=== PATIENT | female | born 2000 | race Hispanic/Latino ===

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

== ENCOUNTER 2022-02-19 17:21 | Day surgery (SDC) | payer OTHER ==
[2022-02-19 18:47] VITALS: BMI 34.3
[2022-02-19 19:00] LABS: Fetal Membranes Rupture No Membranes Rupture (No Rupture)
[2022-02-19] MEDS ORDERED: hydrALAZINE 20 MG/ML VIAL SLOW IVP PRN (19:37)
== END 2022-02-19 20:00 | disposition home or self-care (01) ==
LOC: CSHLD/OP 17:21
PROVIDERS: ATTEND Obstetrics & Gynecology
DX: O99.891 Other specified diseases and conditions complicating pregnancy (principal); N89.8 Other specified noninflammatory disorders of vagina; Z3A.37 37 weeks gestation of pregnancy
CPT/HCPCS: 84112; 87480; 87510; 87660; 99284

== ENCOUNTER 2022-03-09 05:30 | Inpatient (IN) | payer OTHER ==
[2022-03-09] MEDS ORDERED: Ondansetron PF 4 MG/2 ML Vial IVP PRN (20:16)
[2022-03-09] MEDS ORDERED: Ibuprofen 800 MG TAB PO PRN (20:16)
[2022-03-09] MEDS ORDERED: Misoprostol 100 MCG TAB VAG SCH ×2 (20:16)
[2022-03-09] MEDS ORDERED: HYDROcodone/Acetaminophen 5/325 mg Tablet PO PRN ×2 (20:16)
[2022-03-09] MEDS ORDERED: hydrALAZINE 20 MG/ML VIAL SLOW IVP PRN (20:16)
[2022-03-09] MEDS ORDERED: Lidocaine 1% (PF) 30 ML VIAL SC PRN (20:16)
[2022-03-09] MEDS ORDERED: Promethazine HCl 25 MG/ML VIAL IM PRN (20:16)
[2022-03-09 20:36] VITALS: BMI 40.3
[2022-03-09] MEDS ORDERED: NS w/ Oxytocin 30 units 500 ML IV SCH ×2 (21:00)
[2022-03-09] MEDS ORDERED: Penicillin G Potassium 5 MILL.UNITS in Sodium Chloride 0.9% 100 ML IVPB SCH (21:00)
[2022-03-09] MEDS ORDERED: Lactated Ringer's 1,000 ML IV SCH (21:00)
[2022-03-09 21:40] LABS: Hemoglobin 12.1 g/dL (12.0-15.5); Mean Corpuscular HGB CONC 34.2 g/dL (32.0-36.0); Mean Corpuscular Hemoglobin 27.4 pg (27.0-33.0); Mean Corpuscular Volume 80.1 fl (81.6-98.3); Mean Platelet Volume 9.2 fl (7.4-10.4); Platelet Count 364 10x3/uL (150-450); RBC Distribution Width 14.5 % (11.5-14.5); Red Blood Cell (RBC) Count 4.42 10x6/uL (3.90-5.03); White Blood Cell (WBC) Count 13.5 10x3/uL (3.5-10.5)
[2022-03-09 22:19] LABS: SARS-CoV-2 NAA Rapid Test Not Detected (NotDetected)
[2022-03-09 23:52] LABS: Syphilis Antibody Nonreactive (Nonreactive)
[2022-03-09 23:53] LABS: HBSAg Index 0.17 S/CO (0-0.99); Hep B Surf Ag Non-Reactive S/CO (NonReactive)
[2022-03-10] MEDS: Penicillin G 2.5 MILL.units 2.5 MILL.UNITS in Premix Bag 1 BAG IVPB SCH ×5 (01:22→17:14)
[2022-03-10] MEDS: Butorphanol Tartrate 1 MG/ML VIAL SLOW IVP PRN ×6 (07:20→15:56)
[2022-03-10] MEDS ORDERED: Misoprostol 200 MCG TAB ONE (20:01)
[2022-03-10] MEDS ORDERED: CEFAZOLIN 2 GM VIAL ONE (20:57)
[2022-03-10] MEDS ORDERED: Azithromycin 500 MG VIAL ONE (20:57)
[2022-03-10] MEDS ORDERED: Morphine PF 10 MG/10 ML VIAL ONE (20:59)
[2022-03-10] MEDS ORDERED: Phenylephrine 40 MG/NS 250 ML 250 ML ONE (20:59)
[2022-03-10] MEDS ORDERED: Fentanyl 100 MCG/2 ML VIAL ONE (20:59)
[2022-03-10] MEDS ORDERED: Oxytocin 10 UNITS/ML VIAL ONE (21:00)
[2022-03-10] MEDS ORDERED: Fentanyl 100 MCG/2 ML VIAL SLOW IVP PRN (21:05)
[2022-03-10] MEDS ORDERED: Promethazine HCl 25 MG SUPP PR PRN ×2 (21:05→22:30)
[2022-03-10] MEDS ORDERED: Moisturizing Cream (Eucerin) 113 GM JAR TOP PRN ×2 (21:05→22:30)
[2022-03-10] MEDS ORDERED: Ketorolac Tromethamine 30 MG/ML VIAL IVP PRN (21:05)
[2022-03-10] MEDS ORDERED: Meperidine HCl/PF 25 MG/ML VIAL SLOW IVP PRN (21:05)
[2022-03-10] MEDS ORDERED: HYDROmorphone 2 MG/ML VIAL SLOW IVP PRN (21:05)
[2022-03-10] MEDS ORDERED: Ondansetron HCl/PF 4 MG/2 ML Vial IVP PRN (21:05)
[2022-03-10] MEDS ORDERED: Promethazine HCl 25 MG/ML VIAL IM PRN ×2 (21:05→22:30)
[2022-03-10] MEDS ORDERED: Naloxone HCl 0.4 mg/ml Vial IV PRN ×2 (21:05→22:30)
[2022-03-10] MEDS ORDERED: Naloxone HCl 0.4 mg/ml Vial IVP PRN ×4 (21:05→22:30)
[2022-03-10] MEDS ORDERED: Ondansetron PF 4 MG/2 ML Vial IVP PRN ×3 (21:05→23:11)
[2022-03-10] MEDS ORDERED: diphenhydrAMINE 50 MG/ML VIAL IVP PRN ×2 (21:05→22:30)
[2022-03-10] MEDS ORDERED: Famotidine/PF 20 mg/2ml Vial SLOW IVP PRN (21:10)
[2022-03-10] MEDS ORDERED: Bicitra 30 ML UDCUP PO PRN (21:10)
[2022-03-10] MEDS ORDERED: CEFAZOLIN 2 GM in Sodium Chloride 0.9% 100 ML IVPB SCH (21:15)
[2022-03-10] MEDS ORDERED: Communication Order-Pharmacy FS SCH ×2 (21:15→22:30)
[2022-03-10] MEDS ORDERED: Ketorolac Tromethamine 30 MG/ML VIAL IVP SCH (21:15)
[2022-03-10] MEDS ORDERED: Azithromycin 500 MG in Sodium Chloride 0.9% 250 ML 250 ML IVPB SCH (21:15)
[2022-03-10] MEDS ORDERED: Dexamethasone 4 mg/ml Vial ONE (21:20)
[2022-03-10] MEDS ORDERED: Ondansetron PF 4 MG/2 ML Vial ONE (21:20)
[2022-03-10] MEDS ORDERED: PHENYLEPHRINE-NS 100 MCG/ML 10 ML SYRINGE ONE (21:41)
[2022-03-10] MEDS ORDERED: Ketorolac Tromethamine 30 MG/ML VIAL ONE (21:52)
[2022-03-10] MEDS ORDERED: hydrALAZINE 20 MG/ML VIAL SLOW IVP PRN (23:11)
[2022-03-10] MEDS ORDERED: diphenhydrAMINE 25 MG CAP PO PRN (23:11)
[2022-03-10] MEDS ORDERED: Boostrix 0.5 ML (Tdap) VIAL (>/=7 yrs of age) IM ONE (23:11)
[2022-03-10] MEDS ORDERED: Acetaminophen 325 MG TAB PO PRN (23:11)
[2022-03-10] MEDS ORDERED: NS w/ Oxytocin 30 units 500 ML IV SCH (23:11)
[2022-03-10] MEDS ORDERED: Simethicone Chewable 80 MG TAB PO PRN (23:11)
[2022-03-10] MEDS ORDERED: Bisacodyl 10 MG SUPP PR PRN (23:11)
[2022-03-10] MEDS ORDERED: Lanolin Ointment 7 GM TUBE TOP PRN (23:11)
[2022-03-11 06:02] LABS: Hemoglobin 10.4 g/dL (12.0-15.5); Mean Corpuscular HGB CONC 34.7 g/dL (32.0-36.0); Mean Corpuscular Volume 80.6 fl (81.6-98.3); Mean Platelet Volume 9.3 fl (7.4-10.4); Platelet Count 319 10x3/uL (150-450); RBC Distribution Width 14.8 % (11.5-14.5); Red Blood Cell (RBC) Count 3.72 10x6/uL (3.90-5.03); White Blood Cell (WBC) Count 17.8 10x3/uL (3.5-10.5)
[2022-03-11] MEDS: Ketorolac Tromethamine 30 MG/ML VIAL IVP SCH ×3 (08:35→16:24)
[2022-03-11] MEDS: Docusate 100 MG CAP PO SCH (08:35)
[2022-03-11] MEDS: Prenatal Vitamin 1 TAB PO SCH (08:35)
[2022-03-11] MEDS ORDERED: Butorphanol Tartrate 1 MG/ML VIAL SLOW IVP PRN ×2 (09:15→10:30)
[2022-03-11] MEDS ORDERED: HYDROcodone/Acetaminophen 5/325 mg Tablet PO PRN (10:30)
[2022-03-11] MEDS: Penicillin G 2.5 MILL.units 2.5 MILL.UNITS in Premix Bag 1 BAG IVPB SCH (10:55)
[2022-03-12] MEDS: Ibuprofen 800 MG TAB PO SCH ×2 (01:11→11:53)
[2022-03-12] MEDS: Docusate 100 MG CAP PO SCH (08:25)
[2022-03-12] MEDS: HYDROcodone/Acetaminophen 5/325 mg Tablet PO PRN ×2 (08:25→11:54)
[2022-03-12] MEDS: Prenatal Vitamin 1 TAB PO SCH (08:25)
[2022-03-12 11:35] VITALS: BP 113/54; TEMP 98
== END 2022-03-12 14:35 | disposition home or self-care (01) | DRG 788 ==
LOC: CSHLD 19:54 → CSHPP 03-11 06:20
PROVIDERS: ADMIT Obstetrics & Gynecology; ATTEND Obstetrics & Gynecology
PROC: 3E0P7VZ Introduction of Hormone into Female Reproductive, Via Natural or Artificial Opening (ICD-10-PCS; principal; 2022-03-10)
PROC: 10D00Z1 Extraction of Products of Conception, Low, Open Approach (ICD-10-PCS; 2022-03-10)
DX: O99.214 Obesity complicating childbirth (principal); Z37.0 Single live birth; O99.52 Diseases of the respiratory system complicating childbirth; J45.909 Unspecified asthma, uncomplicated; O99.824 Streptococcus B carrier state complicating childbirth; O62.2 Other uterine inertia; E66.9 Obesity, unspecified; O69.81X0 Labor and delivery complicated by cord around neck, without compression, not applicable or unspecified; Z3A.39 39 weeks gestation of pregnancy
CPT/HCPCS: 36415; 51702; 85027; 86780; 86850; 86900; 86901; 87340; J0595; J1100; J1885; J2274; J2405; J2540; J2590; J3010; J3490; J7120; U0002

== ENCOUNTER 2024-11-07 07:45 | Inpatient (IN) | payer OTHER, MEDICAID ==
[2024-11-07 08:22] VITALS: BMI 43.3
[2024-11-07] MEDS ORDERED: Lidocaine 1% (PF) 30 ML VIAL SC PRN (08:47)
[2024-11-07] MEDS ORDERED: HYDROcodone/Acetaminophen 5/325 mg Tablet PO PRN ×3 (08:47→18:38)
[2024-11-07] MEDS ORDERED: hydrALAZINE 20 MG/ML VIAL SLOW IVP PRN ×2 (08:47→18:38)
[2024-11-07] MEDS ORDERED: Ondansetron PF 4 MG/2 ML Vial IVP PRN ×3 (08:47→18:38)
[2024-11-07] MEDS ORDERED: Oxytocin 30 units/NS 500 ML 500 ML IV SCH ×2 (09:00→18:38)
[2024-11-07] MEDS: Penicillin G Potassium 5 MILL.UNITS in Sodium Chloride 0.9% 100 ML IVPB SCH (09:11)
[2024-11-07 09:23] LABS: Hematocrit 32.8 % (34.9-44.5); Hemoglobin 10.6 g/dL (12.0-15.5); Mean Corpuscular Hemoglobin 24.4 pg (27.0-33.0); Mean Corpuscular Volume 75.6 fL (81.6-98.3); Platelet Count 298 10x3/uL (150-450); Red Blood Cell (RBC) Count 4.34 10x6/uL (3.90-5.03); White Blood Cell (WBC) Count 14.31 10x3/uL (3.5-10.5)
[2024-11-07 09:56] LABS: Hep B Surf Ag - L&D Non-Reactive S/CO (NonReactive); Syphilis Antibody Index 0.27 S/CO (<1.00 Non-Reactive)
[2024-11-07 09:59] LABS: HIV (1/2) Antibody/Antigen Non-Reactive (NonReactive); HIV 1/2 INDEX 0.12 S/CO (<1.00)
[2024-11-07] MEDS: fentaNYL/Ropivacaine Epidural 100 ML ONE (11:12)
[2024-11-07] MEDS: Oxytocin 30 units/NS 500 ML 500 ML IV SCH (11:34)
[2024-11-07] MEDS ORDERED: diphenhydrAMINE 50 MG/ML VIAL IVP PRN (11:55)
[2024-11-07] MEDS ORDERED: Acetaminophen 325 MG TAB PO PRN (11:55)
[2024-11-07] MEDS ORDERED: fentaNYL 2 mcg/Ropivacaine 0.2% Epidural 100 ML CADD EPIDURAL SCH (12:00)
[2024-11-07] MEDS ORDERED: Communication Order-Pharmacy FS SCH (12:00)
[2024-11-07] MEDS: Penicillin G 2.5 MILL.units 2.5 MILL.UNITS in Premix 1 BAG IVPB SCH (13:00)
[2024-11-07] MEDS: Ibuprofen 800 MG TAB PO PRN (16:35)
[2024-11-07] MEDS ORDERED: Lanolin Ointment 7 GM TUBE TOP PRN (18:38)
[2024-11-07] MEDS ORDERED: Boostrix 0.5 ML (Tdap) VIAL (>/=7 yrs of age) IM ONE (18:38)
[2024-11-07] MEDS ORDERED: Benzocaine-Menthol 82.5 ML CAN TOP PRN (18:38)
[2024-11-07] MEDS ORDERED: diphenhydrAMINE 25 MG CAP PO PRN (18:38)
[2024-11-07] MEDS ORDERED: Milk Of Magnesia 30 ML UDCUP PO PRN (18:38)
[2024-11-07] MEDS ORDERED: Bisacodyl 10 MG SUPP PR PRN (18:38)
[2024-11-07] MEDS ORDERED: Bupivacaine 0.25% HCL 30 ML VIAL ONE (19:09)
[2024-11-07] MEDS: Ferrous Sulfate 325 MG TAB PO SCH (20:33)
[2024-11-07] MEDS: HYDROcodone/Acetaminophen 5/325 mg Tablet PO PRN (22:57)
[2024-11-08] MEDS: Ibuprofen 800 MG TAB PO SCH (01:13)
[2024-11-08] MEDS: Ferrous Sulfate 325 MG TAB PO SCH (08:47)
[2024-11-08 11:31] VITALS: BP 116/63; TEMP 97.7
== END 2024-11-08 15:45 | disposition home or self-care (01) | DRG 807 ==
LOC: CSHLD/OP 07:45 → CSHLD 08:45 → CSHPP 18:05
PROVIDERS: ADMIT Obstetrics & Gynecology; ATTEND Obstetrics & Gynecology
PROC: 10E0XZZ Delivery of Products of Conception, External Approach (ICD-10-PCS; principal; 2024-11-07)
PROC: 10907ZC Drainage of Amniotic Fluid, Therapeutic from Products of Conception, Via Natural or Artificial Opening (ICD-10-PCS; 2024-11-07)
PROC: 10H07YZ Insertion of Other Device into Products of Conception, Via Natural or Artificial Opening (ICD-10-PCS; 2024-11-07)
PROC: 4A1HXCZ Monitoring of Products of Conception, Cardiac Rate, External Approach (ICD-10-PCS; 2024-11-07)
PROC: 0HQ9XZZ Repair Perineum Skin, External Approach (ICD-10-PCS; 2024-11-07)
DX: O48.0 Post-term pregnancy (principal); Z37.0 Single live birth; O34.211 Maternal care for low transverse scar from previous cesarean delivery; O99.824 Streptococcus B carrier state complicating childbirth; Z79.899 Other long term (current) drug therapy; Z98.890 Other specified postprocedural states; O70.0 First degree perineal laceration during delivery; Z3A.40 40 weeks gestation of pregnancy
CPT/HCPCS: 36415; 51702; 85027; 86780; 86850; 86900; 86901; 87340; 87389; 99285; J0665; J2540; J2590; J7120